=== PATIENT | female | born 1940 | race Caucasian/White ===

== ENCOUNTER 2020-08-30 11:43 | Emergency (ER) | payer MEDICARE, OTHER ==
--- NOTE | 2020-08-30 12:23 | EDM.PDOC ---
ED HPI GENERAL MEDICAL PROBLEM - General Chief Complaint: Lower Extremity Injury/Pain Stated Complaint: COVID SYMPTOMS Time Seen by Provider: 08/30/20 12:00 Source of Information: Reports: Patient History Limitations: Reports: No Limitations - History of Present Illness INITIAL COMMENTS - FREE TEXT/NARRATIVE: Felisha comes into [facility] ED with reported sxs of pain in anterior thighs earlier this am, followed by some lt headiness that was momentary and subsided. There was no headache, vertigo, change in vision, slurred speech, chest pain, palpitations or SOB. She called her PCP who suggested screening in the ED. She is currently asx. 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 ED EXAM, GENERAL - Physical Exam Exam: See Below Exam Limited By: No Limitations General Appearance: Alert, WD/WN, No Apparent Distress Eye Exam: Bilateral Eye: EOMI, Normal Inspection, PERRL Ears: Normal External Exam Nose: Normal Inspection Throat/Mouth: Normal Inspection, Normal Lips, Normal Oropharynx, Normal Voice, No Airway Compromise Head: Normocephalic Neck: Normal Inspection, Supple, Non-Tender Respiratory/Chest: No Respiratory Distress, Lungs Clear, No Accessory Muscle Use, Chest Non-Tender Cardiovascular: Normal Peripheral Pulses, Regular Rate, Rhythm, No Edema, No Murmur GI/Abdominal: Normal Bowel Sounds, Soft, Non-Tender, No Organomegaly, No Distention, No Mass (Female) Exam: Deferred Rectal (Female) Exam: Deferred Back Exam: Normal Inspection, Full Range of Motion Extremities: Normal Inspection, Normal Range of Motion, Non-Tender, No Pedal Edema, Normal Capillary Refill Neurological: Alert, Oriented, CN II-XII Intact, Normal Cognition, Normal Gait, No Motor/Sensory Deficits Psychiatric: Normal Affect, Anxious Skin Exam: Warm, Dry, Intact, Normal Color Lymphatic: No Adenopathy Course - Vital Signs Text/Narrative:: Following assessment, I obtained a CBC and BMP both baseline, and a Covid 19 screen POS. - Orders/Labs/Meds Orders: Active Orders 24 hr Category Date Time Status EKG Documentation Completion [RC] ASDIRECTED Care 08/30/20 12:03 Active CBC WITH AUTO DIFF [HEME] Stat Lab 08/30/20 12:20 Received TROPONIN I [CHEM] Stat Lab 08/30/20 12:20 Received EKG 12 Lead [EK] Routine Ther 08/30/20 12:01 Ordered Labs: Laboratory Tests 08/30/20 08/30/20 Range/Units 12:20 12:37 Sodium 133 L (135-145) mmol/L Potassium 4.3 (3.5-5.3) mmol/L Chloride 96 L (100-110) mmol/L Carbon Dioxide 25 (21-32) mmol/L BUN 15 (7-18) mg/dL Creatinine 1.1 H (0.55-1.02) mg/dL Est Cr Clr Drug Dosing TNP Estimated GFR (MDRD) 48 L (>60) BUN/Creatinine Ratio 13.6 (9-20) Glucose 185 H (80-116) mg/dL Calcium 9.2 (8.6-10.2) mg/dL Total Bilirubin 0.5 (0.1-1.3) mg/dL AST 53 H (5-25) IU/L ALT 37 H (12-36) U/L Alkaline Phosphatase 79 (56-112) IU/L Total Protein 7.3 (6.0-8.0) g/dL Albumin 3.3 (3.2-4.6) g/dL Globulin 4.0 g/dL Albumin/Globulin Ratio 0.8 SARS-CoV-2 RNA (BRENDA) Positive H (NEGATIVE) Departure - Departure Time of Disposition: 14:11 Disposition: Home, Self-Care 01 Condition: Fair Clinical Impression: COVID-19 virus detected - Discharge Information *PRESCRIPTION DRUG MONITORING PROGRAM REVIEWED*: Not Applicable *COPY OF PRESCRIPTION DRUG MONITORING REPORT IN PATIENT MAY: Not Applicable Referrals: PCP,Not In Area [Primary Care Provider] - Forms: ED Department Discharge - Problem List & Annotations (1) COVID-19 virus detected SNOMED Code(s): 7641985239045860 Code(s): U07.1 - COVID-19 Status: Acute Current Visit: Yes Annotation/Comment:: I suggested 10 days of isolation, hydration, analgesic of choice, and contact Clinic for a POS should sxs change or escalate. Patient is agreeable to this COA. - Problem List Review Problem List Initiated/Reviewed/Updated: Yes - My Orders Last 24 Hours: My Active Orders 08/30/20 12:01 EKG 12 Lead [EK] Routine 08/30/20 12:03 EKG Documentation Completion [RC] ASDIRECTED 08/30/20 12:20 CBC WITH AUTO DIFF [HEME] Stat TROPONIN I [CHEM] Stat - Assessment/Plan Last 24 Hours: My Active Orders 08/30/20 12:01 EKG 12 Lead [EK] Routine 08/30/20 12:03 EKG Documentation Completion [RC] ASDIRECTED 08/30/20 12:20 CBC WITH AUTO DIFF [HEME] Stat TROPONIN I [CHEM] Stat Plan: Follow up with PCP.
== END 2020-08-30 14:25 | disposition home or self-care (01) ==
LOC: FB.ED 11:43
DX: U07.1 COVID-19 (principal); M79.651 Pain in right thigh; M79.652 Pain in left thigh
CPT/HCPCS: 36415; 80053; 84484; 93005; 99284; U0002; 99283